=== PATIENT | female | born 1990 ===

== ENCOUNTER 2021-07-07 09:05 | Outpatient (CLI) | payer OTHER | END 2021-07-07 10:14 | disposition home or self-care (01) | LOC: PRENATAL 09:05 | PROVIDERS: ATTEND Obstetrics & Gynecology Maternal & Fetal Medicine | DX: O99.891 Other specified diseases and conditions complicating pregnancy (principal); O99.211 Obesity complicating pregnancy, first trimester; Z36.89 Encounter for other specified antenatal screening; Z3A.12 12 weeks gestation of pregnancy ==

== ENCOUNTER 2021-09-02 08:15 | Outpatient (CLI) | payer OTHER | END 2021-09-02 09:15 | disposition home or self-care (01) | LOC: PRENATAL 08:15 | PROVIDERS: ATTEND Obstetrics & Gynecology Maternal & Fetal Medicine | DX: O35.0XX0 Maternal care for (suspected) central nervous system malformation in fetus, not applicable or unspecified (principal); O99.210 Obesity complicating pregnancy, unspecified trimester ==

== ENCOUNTER 2021-11-25 08:58 | Outpatient (CLI) | payer OTHER | END 2021-11-25 09:45 | disposition home or self-care (01) | LOC: PRENATAL 08:58 | PROVIDERS: ATTEND Obstetrics & Gynecology Maternal & Fetal Medicine | DX: O35.0XX0 Maternal care for (suspected) central nervous system malformation in fetus, not applicable or unspecified (principal); O26.849 Uterine size-date discrepancy, unspecified trimester; O99.891 Other specified diseases and conditions complicating pregnancy; Z3A.32 32 weeks gestation of pregnancy ==

== ENCOUNTER 2021-12-24 13:00 | Inpatient (IN) | payer OTHER ==
[~2021-12-24] VITALS: Ht 162.6 cm; Wt 106.1 kg
[2022-01-01] MEDS ORDERED: CHILDREN'S ASPI81 MG PO (03:10)
[2022-01-01] MEDS ORDERED: PRENATAL TABLE1 EAC1 PO (03:10)
[2022-01-01] MEDS ORDERED: FLUOXETINE HCL60 MG PO (03:11)
== END 2022-01-03 12:49 | disposition home or self-care (01) | DRG 807 ==
LOC: LDR 12-31 23:02 → SURG-SUITE 12-31 23:02 → LDR 01-19 13:00
PROVIDERS: ADMIT Obstetrics & Gynecology; ATTEND Obstetrics & Gynecology
PROC: 10E0XZZ Delivery of Products of Conception, External Approach (ICD-10-PCS; principal; 2021-12-31)
PROC: 0KQM0ZZ Repair Perineum Muscle, Open Approach (ICD-10-PCS; 2021-12-31)
PROC: 0UQMXZZ Repair Vulva, External Approach (ICD-10-PCS; 2021-12-31)
PROC: 4A1HXCZ Monitoring of Products of Conception, Cardiac Rate, External Approach (ICD-10-PCS; 2021-12-31)
DX: O71.82 Other specified trauma to perineum and vulva (principal); O70.1 Second degree perineal laceration during delivery; O99.820 Streptococcus B carrier state complicating pregnancy; Z37.0 Single live birth; Z3A.37 37 weeks gestation of pregnancy; Z20.822 Contact with and (suspected) exposure to COVID-19

== ENCOUNTER 2022-07-23 09:54 | Outpatient (CLI) | payer OTHER ==
[~2022-07-23 09:54] MED LIST: CHILDREN'S ASPI81 MG PO; FLUOXETINE HCL60 MG PO; PRENATAL TABLE1 EAC1 PO
== END 2022-07-23 11:19 | disposition home or self-care (01) ==
LOC: PRENATAL 09:54
PROVIDERS: ATTEND Obstetrics & Gynecology Maternal & Fetal Medicine
DX: O36.80X0 Pregnancy with inconclusive fetal viability, not applicable or unspecified (principal); Z3A.14 14 weeks gestation of pregnancy

== ENCOUNTER 2022-08-21 12:34 | Emergency (ER) | payer OTHER ==
[~2022-08-21] VITALS: Ht 160 cm; Wt 102.1 kg
== END 2022-08-21 15:45 | disposition home or self-care (01) ==
LOC: ER 12:34
DX: O20.9 Hemorrhage in early pregnancy, unspecified (principal); Z3A.19 19 weeks gestation of pregnancy

== ENCOUNTER 2022-09-08 08:39 | Outpatient (CLI) | payer OTHER | END 2022-09-08 10:10 | disposition home or self-care (01) | LOC: PRENATAL 08:39 | PROVIDERS: ATTEND Obstetrics & Gynecology Maternal & Fetal Medicine | DX: O35.9XX0 Maternal care for (suspected) fetal abnormality and damage, unspecified, not applicable or unspecified (principal); O35.3XX0 Maternal care for (suspected) damage to fetus from viral disease in mother, not applicable or unspecified; Z3A.21 21 weeks gestation of pregnancy ==

== ENCOUNTER 2022-11-24 09:03 | Outpatient (CLI) | payer OTHER | END 2022-11-24 10:05 | disposition home or self-care (01) | LOC: PRENATAL 09:03 | PROVIDERS: ATTEND Obstetrics & Gynecology Maternal & Fetal Medicine | DX: O26.849 Uterine size-date discrepancy, unspecified trimester (principal); O36.8199 Decreased fetal movements, unspecified trimester, other fetus; O35.9XX0 Maternal care for (suspected) fetal abnormality and damage, unspecified, not applicable or unspecified; Z3A.32 32 weeks gestation of pregnancy ==

== ENCOUNTER 2022-12-03 21:10 | Outpatient (CLI) | payer OTHER | END 2022-12-04 13:13 | disposition home or self-care (01) | LOC: OBS/DEL 21:10 | PROVIDERS: ATTEND Obstetrics & Gynecology | DX: O23.33 Infections of other parts of urinary tract in pregnancy, third trimester (principal); N39.0 Urinary tract infection, site not specified; Z3A.33 33 weeks gestation of pregnancy; Z20.822 Contact with and (suspected) exposure to COVID-19 ==